=== PATIENT | female | born 1950 | race Caucasian/White ===

== ENCOUNTER 2017-09-07 04:49 | Inpatient (IN) | payer OTHER ==
[~2017-09-07] VITALS: Ht 162.6 cm; Wt 63.0 kg
[~2017-09-07 04:49] MED LIST: PROTONIX40 MG PO
[2017-09-07] MEDS ORDERED: COZAAR100 MG (04:55)
[2017-09-08] MEDS ORDERED: COREG CR10 MG PO (13:52)
[2017-09-08] MEDS ORDERED: ELIQUIS5 MG PO (13:52)
== END 2017-09-08 14:21 | disposition home or self-care (01) | DRG 310 ==
LOC: ER 04:49 → MEDI 07:40 → SEC-K 07:40 → MEDJ 08:01 → MEDI 10:40
PROC: B246ZZZ Ultrasonography of Right and Left Heart (ICD-10-PCS; principal; 2017-09-07)
PROC: 4A12X4Z Monitoring of Cardiac Electrical Activity, External Approach (ICD-10-PCS; 2017-09-07)
DX: I48.0 Paroxysmal atrial fibrillation (principal); I10 Essential (primary) hypertension

== ENCOUNTER 2017-12-04 00:12 | Inpatient (IN) | payer OTHER ==
[~2017-12-04] VITALS: Ht 10.2 cm; Wt 5.0 kg
[~2017-12-04 00:12] MED LIST changes: +COREG CR10 MG PO; +COZAAR100 MG; +ELIQUIS5 MG PO
[2017-12-05] MEDS ORDERED: LIPITOR20 MG PO (10:39)
[2017-12-05] MEDS ORDERED: LOSARTAN POTASS25 MG PO (10:39)
[2017-12-05] MEDS ORDERED: XARELTO15 MG PO (10:39)
[2017-12-05] MEDS ORDERED: METOPROLOL TART50 MG PO (10:39)
== END 2017-12-05 11:15 | disposition home or self-care (01) | DRG 310 ==
LOC: ER 00:12 → MEDI 09:45 → SEC-K 09:45 → MEDI 15:14
PROC: 4A12X4Z Monitoring of Cardiac Electrical Activity, External Approach (ICD-10-PCS; principal; 2017-12-04)
PROC: B246ZZZ Ultrasonography of Right and Left Heart (ICD-10-PCS; 2017-12-04)
DX: I48.0 Paroxysmal atrial fibrillation (principal); I10 Essential (primary) hypertension; Z91.14 Patient's other noncompliance with medication regimen

== ENCOUNTER 2018-01-21 10:31 | Emergency (ER) | payer OTHER ==
[~2018-01-21] VITALS: Ht 162.6 cm; Wt 62.6 kg
[~2018-01-21 10:31] MED LIST changes: +LIPITOR20 MG PO; +LOSARTAN POTASS25 MG PO; +METOPROLOL TART50 MG PO; +XARELTO15 MG PO
== END 2018-01-21 18:04 | disposition home or self-care (01) ==
LOC: ER 10:31
DX: R53.81 Other malaise (principal); R10.31 Right lower quadrant pain

== ENCOUNTER 2018-05-27 08:51 | Inpatient (IN) | payer OTHER ==
[~2018-05-27] VITALS: Ht 165.1 cm; Wt 62.6 kg
--- NOTE | 2018-05-27 09:10 | NUR ---
SE RECIBE PTE ALERTA Y ORIENTADA X 3 ESFERAS. REFIERE PALPITACIONES, DIFICULTAD RESPIRATORIA Y OPRESION EN EL PECHO. SE REALIZA EKG Y SE PRESENTA A LA DRA BRAVO. SE UBICA EN CHEST PAIN CONECTADA A MONITOR CARDIACO.
--- NOTE | 2018-05-27 09:33 | NUR ---
SE ORIENTA PTE SOBRE TRATAMIENTO. SE RUSLAN MUESTRAS DE ROSMERY Y SE CANALIZA PERIFERALMENTE POR RN LOGRONO QUIEN ADMINISTRA MEDICAMENTOS ORDENADOS.PTE PENDIENTE A RE-EVALAUCION POR DRA. OGDEN.
--- NOTE | 2018-05-27 10:01 | NUR ---
0910 SE RECIBE PT ALERTA Y ORIENTADA X 3, ACOMPANADA DE FAMILIAR. PT REFIERE PALPITACIONES. SE COLOCA EN JANNETH CON BARANDAS ELEVADAS, SE CONECTA A MONITOR CARDIACO, OXIMETRIA DE PULSO CONTINUA. SE MIDEN SV Y SE DOCUMENTAN. SE COLECTAN MUESTRAS Y SE CANALIZA BAJO MEDIDAS ASEPTICAS,AREA DE VENOPUNCION LOYD DE EDEMA Y ERITEMA. SE REPITA EKG Y SE PRESENTA A DRA OGDEN QUIEN EVALUA EL MISMO.
--- NOTE | 2018-05-27 10:04 | NUR ---
KARIN ORDENA MEDICAMENTOS, SE ORIENTA A PT SOBRE LOS MISMOS Y SE ADMINISTRAN WANDER ORDEN. SE ADMINISTRA CARDIZEM BOLUS 20MG, SE EVALUA TRAZADO DE PT, QUIEN LUEGO DE ADMINISTRAR MEDICAMENTO PRESENTA PULSO 110LPM. SE NOTIFICA A DRA OGDEN QUIEN RE EVALUA A PT.
--- NOTE | 2018-05-27 12:04 | NUR ---
1120 PT REFIERE DOLOR EN AREA DE VENOPUNCION. AREA NO PRESENTA EDEMA Y ERITEMA. SE LE REMUEVE LA MISMA Y SE CANALIZA BAJO MEDIDAS ASEPTICAS EN ENTEBRAZO LT. IVF PATENTE. SE COMIENZA DRIP DE AMIODARONE 450MG/250ML BAJANDO A 33.3ML/HR . SE MIDEN S/V Y SE DOCUMENTAN.
--- NOTE | 2018-05-27 12:08 | NUR ---
PT EVALUADA POR KARIN BROOK QUIEN DA ORDENES DE ADMISION.
--- NOTE | 2018-05-27 14:56 | NUR ---
SE RECIBE PTE ALERTA Y ORIENTADA X3 EN JANNETH CON BARANDAS ELEVADAS AL MOMENTO EN JANNETH #3 DE UNIDAD DE CRITICO. PTE SE CONECTA A MONITOR CARDIACO CON OXIMETRIA CONTINUA. PTE SE OBSERVA CON h/L EL CUAL SE ENCUENTRA PATENTE LOYD DE EDEAM Y ENROJECIMIENTO. PTE CON DRIP DE AMIODARONA DE 450MG/250ML BAJANDO A 33ML/HR RUBEN LAS PRIMERAS 8HRS LUEGO BAJARA A 16ML/HR. 0.45 DE 1000ML BAJANDO A 80ML/HR. SE CANALIZA A PTE LA CUAL SE ENCUENTRA PATENTE LOYD DE EDEMA Y ENROJECIMIENTO. PTE EN ESEPRA DE CONSULTA CON CARDIOLOGO Y MUESTRAS PENDIENTES EN LA MANANA. PTE SE CONTINUA MONITORIANDO POR CAMBIOS EN AWAD CONDICION.
[2018-05-29] MEDS ORDERED: LOPRESSOR25 MG PO (08:39)
[2018-05-29] MEDS ORDERED: FLECAINIDE ACET50 MG PO (08:39)
[2018-05-29] MEDS ORDERED: XARELTO15 MG PO (08:39)
== END 2018-05-29 09:38 | disposition home or self-care (01) | DRG 305 ==
LOC: ER 08:51 → ICU-2 11:59 → SEC-K 05-28 12:08 → MEDI 05-28 13:33
PROVIDERS: ADMIT Internal Medicine
PROC: 4A12X4Z Monitoring of Cardiac Electrical Activity, External Approach (ICD-10-PCS; principal; 2018-05-27)
DX: I11.9 Hypertensive heart disease without heart failure (principal); I48.0 Paroxysmal atrial fibrillation; E78.00 Pure hypercholesterolemia, unspecified

== ENCOUNTER → 2018-09-21 | Emergency (ER) | payer OTHER ==
[~2018-09-21] VITALS: Ht 165.1 cm; Wt 64.4 kg
[~2018-09-21] MED LIST changes: +FLECAINIDE ACET50 MG PO; +LOPRESSOR25 MG PO; +SKELAXIN800 MG PO
== END | disposition left against medical advice (07) ==
LOC: ER 19:29
DX: Z53.20 Procedure and treatment not carried out because of patient's decision for unspecified reasons (principal)

== ENCOUNTER 2018-09-23 02:52 | Emergency (ER) | payer OTHER ==
[~2018-09-23] VITALS: Ht 165.1 cm; Wt 64.4 kg
[~2018-09-23 02:52] MED LIST changes: -SKELAXIN800 MG PO
[2018-09-23] MEDS ORDERED: SKELAXIN800 MG PO (07:08)
== END 2018-09-23 08:19 ==
LOC: ER 02:52
DX: S13.4XXA Sprain of ligaments of cervical spine, initial encounter (principal); S33.5XXA Sprain of ligaments of lumbar spine, initial encounter; S23.3XXA Sprain of ligaments of thoracic spine, initial encounter; S00.83XA Contusion of other part of head, initial encounter; W01.198A Fall on same level from slipping, tripping and stumbling with subsequent striking against other object, initial encounter; Y93.E5 Activity, floor mopping and cleaning; Y92.098 Other place in other non-institutional residence as the place of occurrence of the external cause; Y99.8 Other external cause status

== ENCOUNTER 2018-12-04 02:18 | Emergency (ER) | payer OTHER ==
[~2018-12-04] VITALS: Ht 162.6 cm; Wt 62.1 kg
[~2018-12-04 02:18] MED LIST changes: +SKELAXIN800 MG PO
[2018-12-04] MEDS ORDERED: TOPROL XL50 M1 (02:33)
== END 2018-12-04 13:09 | disposition home or self-care (01) ==
LOC: ER 02:18 → CPU-OBS 02:19 → ER 02:19
DX: I48.0 Paroxysmal atrial fibrillation (principal); I16.0 Hypertensive urgency; I10 Essential (primary) hypertension; E78.00 Pure hypercholesterolemia, unspecified

== ENCOUNTER 2019-08-11 08:10 | Outpatient (CLI) | payer OTHER ==
[~2019-08-11 08:10] MED LIST changes: +TOPROL XL50 M1
== END 2019-08-11 08:15 | disposition home or self-care (01) ==
LOC: RAD 08:10
PROVIDERS: ATTEND Physical Medicine & Rehabilitation
DX: M54.2 Cervicalgia (principal); M54.6 Pain in thoracic spine; M54.5 Low back pain

== ENCOUNTER 2019-10-21 09:54 | Outpatient (CLI) | payer OTHER | END 2019-10-21 10:45 | disposition home or self-care (01) | LOC: NUCLEAR 09:54 | PROVIDERS: ATTEND Physical Medicine & Rehabilitation | DX: M81.0 Age-related osteoporosis without current pathological fracture (principal) ==

== ENCOUNTER 2019-10-21 11:14 | Outpatient (CLI) | payer OTHER | END 2019-10-21 11:22 | disposition home or self-care (01) | LOC: MRI 11:14 | PROVIDERS: ATTEND Physical Medicine & Rehabilitation | DX: M54.5 Low back pain (principal); M54.16 Radiculopathy, lumbar region | CPT/HCPCS: 72148 ==

== ENCOUNTER → 2020-06-22 12:21 | Outpatient (CLI) | payer OTHER | END | disposition home or self-care (01) | LOC: NUCLEAR 11:00 | PROVIDERS: ATTEND Physical Medicine & Rehabilitation | DX: I73.9 Peripheral vascular disease, unspecified (principal); I87.2 Venous insufficiency (chronic) (peripheral) ==

== ENCOUNTER → 2020-06-24 09:51 | Outpatient (CLI) | payer OTHER | END | disposition home or self-care (01) | LOC: NUCLEAR 09:51 | PROVIDERS: ATTEND Physical Medicine & Rehabilitation | DX: I73.9 Peripheral vascular disease, unspecified (principal); I87.2 Venous insufficiency (chronic) (peripheral) ==

== ENCOUNTER 2021-04-23 20:29 | Emergency (ER) | payer OTHER ==
[~2021-04-23] VITALS: Ht 165.1 cm; Wt 63.0 kg
[2021-04-23] MEDS ORDERED: LOSARTAN POTASS50 MG PO (20:38)
[2021-04-23] MEDS ORDERED: AMLODIPINE BESYL5 MG PO (20:39)
[2021-04-24] MEDS ORDERED: CIPRO500 MG PO (02:16)
[2021-04-24] MEDS ORDERED: KETO10TA2 PO (02:16)
== END 2021-04-24 05:01 | disposition home or self-care (01) ==
LOC: ER 20:29
DX: D25.9 Leiomyoma of uterus, unspecified (principal); N39.0 Urinary tract infection, site not specified; R10.31 Right lower quadrant pain; Z86.79 Personal history of other diseases of the circulatory system; Z88.0 Allergy status to penicillin

== ENCOUNTER 2021-05-09 13:19 | Outpatient (CLI) | payer OTHER ==
[~2021-05-09 13:19] MED LIST changes: +AMLODIPINE BESYL5 MG PO; +CIPRO500 MG PO; +KETO10TA2 PO; +LOSARTAN POTASS50 MG PO
== END 2021-05-09 13:41 | disposition home or self-care (01) ==
LOC: MAMO-SONO 13:19
PROVIDERS: ATTEND Obstetrics & Gynecology
DX: N60.11 Diffuse cystic mastopathy of right breast (principal)

== ENCOUNTER 2021-05-23 12:52 | Outpatient (CLI) | payer OTHER | END 2021-05-23 13:03 | disposition home or self-care (01) | LOC: MRI 12:52 | PROVIDERS: ATTEND Neuromusculoskeletal Medicine & OMM | DX: F51.01 Primary insomnia (principal); G25.0 Essential tremor | CPT/HCPCS: 70551; 72141 ==

== ENCOUNTER 2021-08-19 11:46 | Emergency (ER) | payer OTHER ==
[~2021-08-19] VITALS: Ht 165.1 cm; Wt 63.0 kg
== END 2021-08-19 14:18 | disposition home or self-care (01) ==
LOC: ER 11:46
DX: U07.1 COVID-19 (principal); Z88.0 Allergy status to penicillin; I10 Essential (primary) hypertension

== ENCOUNTER 2021-08-28 19:47 | Emergency (ER) | payer OTHER ==
[~2021-08-28] VITALS: Ht 165.1 cm; Wt 62.6 kg
== END 2021-08-28 23:11 | disposition home or self-care (01) ==
LOC: ER 19:47
DX: S09.90XA Unspecified injury of head, initial encounter (principal); W18.30XA Fall on same level, unspecified, initial encounter; Y93.9 Activity, unspecified; Y92.413 State road as the place of occurrence of the external cause; Z88.0 Allergy status to penicillin

== ENCOUNTER 2021-11-09 21:47 | Emergency (ER) | payer OTHER ==
[~2021-11-09] VITALS: Ht 157.5 cm; Wt 61.2 kg
[2021-11-10] MEDS ORDERED: NABUMETONE750 MG PO (00:27)
[2021-11-10] MEDS ORDERED: ERYTHROMYCIN500 MG PO (00:27)
== END 2021-11-10 00:31 ==
LOC: ER 21:47
DX: M79.605 Pain in left leg (principal); Z88.0 Allergy status to penicillin

== ENCOUNTER 2021-11-27 08:14 | Outpatient (CLI) | payer OTHER ==
[~2021-11-27 08:14] MED LIST changes: +ERYTHROMYCIN500 MG PO; +NABUMETONE750 MG PO
== END 2021-11-27 08:15 | disposition home or self-care (01) ==
LOC: NUCLEAR 08:14
PROVIDERS: ATTEND Internal Medicine Cardiovascular Disease
DX: I87.2 Venous insufficiency (chronic) (peripheral) (principal); Z88.0 Allergy status to penicillin

== ENCOUNTER 2021-12-01 08:21 | Outpatient (CLI) | payer OTHER | END 2021-12-01 08:31 | disposition home or self-care (01) | LOC: TOM 08:21 | PROVIDERS: ATTEND Neuromusculoskeletal Medicine & OMM | DX: I65.21 Occlusion and stenosis of right carotid artery (principal) | CPT/HCPCS: 70498; Q9965 ==

== ENCOUNTER 2022-04-12 01:44 | Emergency (ER) | payer OTHER ==
[~2022-04-12] VITALS: Ht 162.6 cm; Wt 61.7 kg
[2022-04-12] MEDS ORDERED: XARELTO20 MG (01:58)
[2022-04-12] MEDS ORDERED: ZYNCOF 20-400120 ML PO (04:52)
[2022-04-12] MEDS ORDERED: FLONASE16 GM NASAL (04:52)
[2022-04-12] MEDS ORDERED: ORASEP SPRAY30 ML MM (04:52)
== END 2022-04-12 05:47 ==
LOC: ER 01:44
DX: K06.8 Other specified disorders of gingiva and edentulous alveolar ridge (principal); B34.9 Viral infection, unspecified; I10 Essential (primary) hypertension; Z88.0 Allergy status to penicillin; Z20.822 Contact with and (suspected) exposure to COVID-19

== ENCOUNTER 2022-06-18 09:16 | Outpatient (CLI) | payer OTHER ==
[~2022-06-18 09:16] MED LIST changes: +FLONASE16 GM NASAL; +ORASEP SPRAY30 ML MM; +XARELTO20 MG; +ZYNCOF 20-400120 ML PO
== END 2022-06-18 09:28 | disposition home or self-care (01) ==
LOC: RAD 09:16
PROVIDERS: ATTEND Internal Medicine Gastroenterology
DX: I70.0 Atherosclerosis of aorta (principal); R10.84 Generalized abdominal pain

== ENCOUNTER 2022-06-18 13:31 | Outpatient (CLI) | payer OTHER | END 2022-06-18 13:32 | disposition home or self-care (01) | LOC: NUCLEAR 13:31 | DX: M81.0 Age-related osteoporosis without current pathological fracture (principal) ==

== ENCOUNTER → 2022-09-26 | Emergency (ER) | payer OTHER ==
[~2022-09-26] VITALS: Ht 165.1 cm; Wt 69.4 kg
== END | disposition left against medical advice (07) ==
LOC: ER 05:31
DX: Z53.21 Procedure and treatment not carried out due to patient leaving prior to being seen by health care provider (principal)

== ENCOUNTER 2022-10-31 07:47 | Emergency (ER) | payer OTHER ==
[~2022-10-31] VITALS: Ht 165.1 cm; Wt 61.7 kg
== END 2022-10-31 13:59 | disposition home or self-care (01) ==
LOC: ER 07:47
PROVIDERS: General Practice
DX: K59.00 Constipation, unspecified (principal); R10.9 Unspecified abdominal pain; Z88.0 Allergy status to penicillin; I10 Essential (primary) hypertension; K44.9 Diaphragmatic hernia without obstruction or gangrene
CPT/HCPCS: 36415; 74176; 96365; 96366; 99284; J7030

== ENCOUNTER 2023-04-29 08:46 | Outpatient (CLI) | payer OTHER | END 2023-04-29 08:57 | disposition home or self-care (01) | LOC: TOM 08:46 | PROVIDERS: ATTEND Internal Medicine Gastroenterology | DX: R10.31 Right lower quadrant pain (principal) | CPT/HCPCS: 74178; Q9965 ==

== ENCOUNTER 2023-05-02 11:24 | Outpatient (CLI) | payer OTHER | END 2023-05-02 11:27 | disposition home or self-care (01) | LOC: RAD 11:24 | PROVIDERS: ATTEND Neuromusculoskeletal Medicine & OMM | DX: M51.26 Other intervertebral disc displacement, lumbar region (principal); M51.36 Other intervertebral disc degeneration, lumbar region; Z88.0 Allergy status to penicillin | CPT/HCPCS: 72148 ==

== ENCOUNTER 2023-10-13 04:41 | Emergency (ER) | payer OTHER ==
[~2023-10-13] VITALS: Ht 165.1 cm; Wt 62.6 kg
[~2023-10-13 04:41] MED LIST changes: +MUCINEX DM ER1 EACH PO; +OSEL75CA PO; +ZYRTEC10 MG PO
[2023-10-13] MEDS ORDERED: DILTIAZEM HCL 25 MG/5 ML VIAL IV ONE ×2 (04:51→05:00)
[2023-10-13] MEDS ORDERED: 0.9 % SODIUM CHLORIDE 1,000 ML IV SCH (05:00)
[2023-10-13 05:06] LABS: HEMATOCRIT 37.4 % (36.0-45.00); HEMOGLOBIN 12.1 g/dL (12.0-15.00); MEAN CELL VOLUME 84.6 fL (80.00-100.00); MEAN CORPUSCULAR HEMOGLOBIN 27.4 pg (27.00-32.0); MEAN CORPUSCULAR HGB CONC 32.4 g/dl (32.0-36.0); PLATELET COUNT 194 K/uL (150-450); RED BLOOD COUNT 4.42 M/uL (4.00-6.00); RED CELL DISTRIBUTION WIDTH 14.2 % (11.5-14.5)
[2023-10-13 05:51] LABS: ALBUMIN 3.8 gm/dL (3.4-5.0); BILIRUBIN TOTAL 0.49 mg/dL (0.3-1.2); CALCIUM 9.1 mg/dL (8.5-10.1); CREATININE SERUM 0.82 mg/dL (0.55-1.02); GFR 68.15; GLOBULINA 3.1 G/DL (2.4-3.5); POTASSIUM 3.73 mEq/L (3.5-5.1); TOTAL PROTEIN 6.9 gm/dL (6.4-8.2)
[2023-10-13 05:54] LABS: INR 1.28; PROTHROMBIN TIME 13.7 SECONDS (9.0-11.5)
[2023-10-13 05:56] LABS: PARTIAL THROMBOPLASTIN TIME 38.8 SECONDS (22.0-34.0)
[2023-10-13 07:40] LABS: PH,URINE 7.5 (5.0-8.0); URINE APPEARANCE Clear; URINE BILIRRUBIN Negative (NEGATIVE); URINE BLOOD Negative; URINE COLOR Yellow; URINE GLUCOSE Negative (NEGATIVE); URINE KETONE Negative (NEGATIVE); URINE LEUKOCYTE Negative; URINE NITRATE Negative; URINE PROTEIN Negative (NEGATIVE); URINE UROBILINOGEN 0.2 E.U./dl
[2023-10-13 07:43] LABS: URINE BACTERIA 52.8 uL (0.0-1933); URINE EPITHELIAL CELLS 5.2 uL (0.0-38.8); URINE RBC 2.4 uL (0.0-20.8); URINE WBC 3.5 uL (0.0-23.2)
[2023-10-13] MEDS ORDERED: DILTIAZEM HCL 125 MG in 0.9 % SODIUM CHLORIDE 125 ML IV SCH (08:00)
[2023-10-13] MEDS ORDERED: AMIODARONE IN DEXTROSE,ISO-OSM 360 MG/200 ML IV.SOLN IV ONE ×2 (08:06→13:48)
[2023-10-13] MEDS ORDERED: AMIODARONE HCL 50 MG/ML AMPUL IV ONE ×2 (08:06→08:15)
[2023-10-13 13:44] LABS: TSH 2.76 uIU/mL (0.358-3.74)
[2023-10-14] MEDS ORDERED: AMIODARONE HCL 200 MG TABLET PO SCH (09:00)
== END 2023-10-14 08:12 | disposition home or self-care (01) ==
LOC: ER 04:41
PROVIDERS: General Practice
DX: I48.91 Unspecified atrial fibrillation (principal); R00.2 Palpitations; Z20.822 Contact with and (suspected) exposure to COVID-19; I10 Essential (primary) hypertension; Z88.0 Allergy status to penicillin
CPT/HCPCS: 36415; 71045; 96365; 96366; 99283; J3490 ×2; J7030

== ENCOUNTER 2024-02-20 10:09 | Emergency (ER) | payer OTHER ==
[~2024-02-20] VITALS: Ht 165.1 cm; Wt 61.7 kg
[2024-02-20] MEDS ORDERED: DEXAMETHASONE SODIUM PHOSPHATE 4 MG/ML VIAL IM ONE (12:00)
[2024-02-20] MEDS ORDERED: GUAIFENESIN/DEXTROMETHORPHAN 10ML BLIST.PACK PO ONE (12:00)
[2024-02-20] MEDS ORDERED: ACETAMINOPHEN 500 MG GEL..CAP PO ONE (12:00)
[2024-02-20] MEDS ORDERED: DEXAMETHASONE SODIUM PHOSPHATE 4 MG/ML VIAL ONE (12:01)
[2024-02-20] MEDS ORDERED: GUAIFEN/DEXTROMETHORPHAN/PE 10 ML BLIST.PACK PO ONE (12:02)
[2024-02-20 12:26] LABS: HEMATOCRIT 39.2 % (36.0-45.00); MEAN CORPUSCULAR HEMOGLOBIN 28.2 pg (27.00-32.0); MEAN CORPUSCULAR HGB CONC 33.2 g/dl (32.0-36.0); PLATELET COUNT 226 K/uL (150-450); RED BLOOD COUNT 4.62 M/uL (4.00-6.00); RED CELL DISTRIBUTION WIDTH 14.4 % (11.5-14.5)
[2024-02-20] MEDS ORDERED: TUSNEL LIQUID178 ML PO (13:18)
[2024-02-20] MEDS ORDERED: ZITHROMAX500 MG PO (13:18)
== END 2024-02-20 13:42 | disposition home or self-care (01) ==
LOC: ER 10:11
PROVIDERS: General Practice
DX: J00 Acute nasopharyngitis [common cold] (principal); Z88.0 Allergy status to penicillin; I10 Essential (primary) hypertension; Z20.822 Contact with and (suspected) exposure to COVID-19
CPT/HCPCS: 36415; 96372; 99282; J1100

== ENCOUNTER 2024-06-19 16:29 | Emergency (ER) | payer OTHER ==
[~2024-06-19] VITALS: Ht 162.6 cm; Wt 63.5 kg
[~2024-06-19 16:29] MED LIST changes: +TUSNEL LIQUID178 ML PO; +ZITHROMAX500 MG PO
[2024-06-19 17:59] LABS: HEMOGLOBIN 11.4 g/dL (12.0-15.00); MEAN CELL VOLUME 86.1 fL (80.00-100.00); MEAN CORPUSCULAR HEMOGLOBIN 27.9 pg (27.00-32.0); MEAN CORPUSCULAR HGB CONC 32.5 g/dl (32.0-36.0); PLATELET COUNT 222 K/uL (150-450); RED BLOOD COUNT 4.07 M/uL (4.00-6.00); RED CELL DISTRIBUTION WIDTH 14.5 % (11.5-14.5)
[2024-06-19 18:14] LABS: PH,URINE 6.5 (5.0-8.0); URINE APPEARANCE Clear; URINE BILIRRUBIN Negative (NEGATIVE); URINE BLOOD Negative; URINE COLOR Dark Yellow; URINE GLUCOSE Negative (NEGATIVE); URINE KETONE Trace (NEGATIVE); URINE LEUKOCYTE Small; URINE NITRATE Negative; URINE PROTEIN 30 (NEGATIVE)
[2024-06-19 18:17] LABS: URINE BACTERIA 380.5 uL (0.0-1933); URINE EPITHELIAL CELLS 35.4 uL (0.0-38.8); URINE RBC 15.6 uL (0.0-20.8); URINE WBC 79.2 uL (0.0-23.2)
[2024-06-19 18:30] LABS: ALBUMIN 3.6 gm/dL (3.4-5.0); BILIRUBIN TOTAL 0.18 mg/dL (0.3-1.2); CALCIUM 9.1 mg/dL (8.5-10.1); CREATININE SERUM 0.88 mg/dL (0.55-1.02); GFR 62.64; GLOBULINA 3.3 G/DL (2.4-3.5); POTASSIUM 4.06 mEq/L (3.5-5.1); TOTAL PROTEIN 6.9 gm/dL (6.4-8.2)
[2024-06-19 18:33] LABS: COVID-19 AG NEGATIVE (NEGATIVE); INFLUENZA A AG NEGATIVE (NEGATIVE)
[2024-06-19 18:52] LABS: URINE CAST 0.73 uL (0.0-1.40)
[2024-06-19] MEDS ORDERED: CEFTRIAXONE SODIUM 1,000 MG VIAL IM STA (19:04)
[2024-06-19] MEDS ORDERED: LIDOCAINE HCL 1% 10ML VIAL ONE (19:08)
[2024-06-19] MEDS ORDERED: CEFTRIAXONE SODIUM 1,000 MG VIAL ONE (19:08)
== END 2024-06-19 19:15 | disposition home or self-care (01) ==
LOC: ER 16:29
PROVIDERS: General Practice
DX: R53.1 Weakness (principal); Z88.0 Allergy status to penicillin; N39.0 Urinary tract infection, site not specified; Z20.822 Contact with and (suspected) exposure to COVID-19
CPT/HCPCS: 36415; 96372; 99282; J0696

== ENCOUNTER 2024-06-24 12:32 | Outpatient (CLI) | payer OTHER | END 2024-06-24 12:55 | disposition home or self-care (01) | LOC: MRI 12:32 | PROVIDERS: ATTEND Neuromusculoskeletal Medicine & OMM | DX: G25.0 Essential tremor (principal); M51.26 Other intervertebral disc displacement, lumbar region; M51.360 Other intervertebral disc degeneration, lumbar region with discogenic back pain only | CPT/HCPCS: 70551; 72148 ==

== ENCOUNTER 2024-07-04 07:04 | Emergency (ER) | payer OTHER ==
[~2024-07-04] VITALS: Ht 165.1 cm; Wt 62.1 kg
[2024-07-04] MEDS ORDERED: HYOSCYAMINE SULFATE 0.125 MG TAB.SUBL SL ONE (08:30)
[2024-07-04] MEDS ORDERED: HYOSCYAMINE SULFATE 0.125 MG TAB.SUBL ONE (08:54)
[2024-07-04 10:04] LABS: BASO % 1.2 % (0.1-1.2); EOS # 0.08 (0.04-0.54); EOS % 1.9 % (0.7-7.0); HEMATOCRIT 37.9 % (34.1-44.9); HEMOGLOBIN 12.6 g/dL (11.2-15.7); LYMPH # 0.98 (1.18-3.74); LYMPH % 23.7 % (19.3-53.1); MEAN CORPUSCULAR HEMOGLOBIN 28.1 pg (25.6-32.2); MONO # 0.61 (0.24-0.82); NEUT # 2.41 (1.56-6.13); NEUT % 58.3 % (34.0-71.1); PLATELET COUNT 230 K/uL (163-369); RED BLOOD COUNT 4.49 M/uL (3.93-5.22); RED CELL DISTRIBUTION WIDTH 13.6 % (11.6-14.4)
[2024-07-04 10:08] LABS: MONO % 14.7 % (4.7-12.5)
[2024-07-04 10:36] LABS: ALBUMIN 3.7 gm/dL (3.4-5.0); BILIRUBIN TOTAL 0.55 mg/dL (0.3-1.2); CALCIUM 8.7 mg/dL (8.5-10.1); CREATININE SERUM 0.78 mg/dL (0.55-1.02); GLOBULINA 3.5 G/DL (2.4-3.5); POTASSIUM 4.62 mEq/L (3.5-5.1); TOTAL PROTEIN 7.2 gm/dL (6.4-8.2)
[2024-07-04 11:00] LABS: PH,URINE 6.5 (5.0-8.0); URINE APPEARANCE Clear; URINE BILIRRUBIN Negative (NEGATIVE); URINE BLOOD NHT; URINE COLOR Yellow; URINE GLUCOSE Negative (NEGATIVE); URINE KETONE Negative (NEGATIVE); URINE LEUKOCYTE Trace; URINE NITRATE Negative; URINE PROTEIN Trace (NEGATIVE)
[2024-07-04 11:05] LABS: URINE BACTERIA 37.9 uL (0.0-1933); URINE EPITHELIAL CELLS 32.5 uL (0.0-38.8); URINE RBC 36.3 uL (0.0-20.8); URINE WBC 9.6 uL (0.0-23.2)
== END 2024-07-04 13:15 | disposition home or self-care (01) ==
LOC: ER 07:15
PROVIDERS: Emergency Medicine
DX: R53.1 Weakness (principal); I10 Essential (primary) hypertension; Z88.0 Allergy status to penicillin

== ENCOUNTER 2024-07-21 07:25 | Emergency (ER) | payer OTHER ==
[~2024-07-21] VITALS: Ht 165.1 cm; Wt 59.9 kg
[2024-07-21] MEDS ORDERED: 0.9 % SODIUM CHLORIDE 1,000 ML IV SCH (08:30)
[2024-07-21 08:43] LABS: BASO % 0.7 % (0.1-1.2); EOS # 0.13 (0.04-0.54); EOS % 2.4 % (0.7-7.0); HEMATOCRIT 38.2 % (34.1-44.9); HEMOGLOBIN 12.2 g/dL (11.2-15.7); LYMPH # 1.67 (1.18-3.74); LYMPH % 31.2 % (19.3-53.1); MEAN CORPUSCULAR HEMOGLOBIN 26.9 pg (25.6-32.2); MONO # 0.42 (0.24-0.82); MONO % 7.9 % (4.7-12.5); NEUT # 3.08 (1.56-6.13); NEUT % 57.6 % (34.0-71.1); PLATELET COUNT 241 K/uL (163-369); RED BLOOD COUNT 4.54 M/uL (3.93-5.22); RED CELL DISTRIBUTION WIDTH 13.7 % (11.6-14.4)
[2024-07-21 09:19] LABS: INR 1.09; PARTIAL THROMBOPLASTIN TIME 31.3 SECONDS (22.0-34.0); PROTHROMBIN TIME 11.8 SECONDS (9.0-11.5)
[2024-07-21 09:32] LABS: ALBUMIN 3.6 gm/dL (3.4-5.0); BILIRUBIN TOTAL 0.41 mg/dL (0.3-1.2); CALCIUM 8.9 mg/dL (8.5-10.1); CREATININE SERUM 0.77 mg/dL (0.55-1.02); GFR 73.08; GLOBULINA 3.4 G/DL (2.4-3.5); POTASSIUM 4.12 mEq/L (3.5-5.1)
[2024-07-21 09:43] LABS: INFLUENZA A AG NEGATIVE (NEGATIVE)
[2024-07-21 09:44] LABS: COVID-19 AG NEGATIVE (NEGATIVE)
[2024-07-21 10:59] LABS: URINE APPEARANCE Clear; URINE BILIRRUBIN Negative (NEGATIVE); URINE BLOOD Negative; URINE COLOR Yellow; URINE GLUCOSE Negative (NEGATIVE); URINE KETONE Negative (NEGATIVE); URINE LEUKOCYTE Negative; URINE NITRATE Negative; URINE PROTEIN Negative (NEGATIVE); URINE UROBILINOGEN 0.2 E.U./dl
[2024-07-21 11:03] LABS: URINE BACTERIA 13.4 uL (0.0-1933)
[2024-07-21 11:11] LABS: URINE EPITHELIAL CELLS 0.1 uL (0.0-38.8); URINE RBC 1.7 uL (0.0-20.8); URINE WBC 0.4 uL (0.0-23.2)
== END 2024-07-21 15:35 | disposition home or self-care (01) ==
LOC: ER 07:25
DX: I48.91 Unspecified atrial fibrillation (principal); R07.89 Other chest pain; I10 Essential (primary) hypertension; E11.9 Type 2 diabetes mellitus without complications; Z88.0 Allergy status to penicillin
CPT/HCPCS: 36415; 71045; 93041; 96365; 96366; 99283; J7030

== ENCOUNTER 2024-09-21 11:00 | Outpatient (CLI) | payer OTHER | END 2024-09-21 11:06 | disposition home or self-care (01) | LOC: SONOGRAMA 11:00 | PROVIDERS: ATTEND Neuromusculoskeletal Medicine & OMM | DX: E04.1 Nontoxic single thyroid nodule (principal) ==

== ENCOUNTER 2025-01-18 09:44 | Outpatient (CLI) | payer OTHER | END 2025-01-18 09:46 | disposition home or self-care (01) | LOC: SONOGRAMA 09:44 | PROVIDERS: ATTEND Pathology Anatomic Pathology | DX: D34 Benign neoplasm of thyroid gland (principal); E07.89 Other specified disorders of thyroid; E04.2 Nontoxic multinodular goiter ==